=== PATIENT | female | born 1950 | race Caucasian/White ===

== ENCOUNTER 2017-07-22 05:28 | Day surgery (SDC) | payer OTHER ==
[~2017-07-22] VITALS: Ht 175.3 cm; Wt 86.6 kg
[~2017-07-22 05:28] MED LIST: ADVIL200 MG PO; FEMARA2.5 MG PO; MAGNESIUM OXID200 MG PO; POTASSIUM-9999 MG PO; TURMERIC500 M2 PO; VITAMIN D32000 UNI1 PO
[2017-07-22 06:40] VITALS: BP 112/68
[2017-07-22 09:15] VITALS: BP 125/67
[2017-07-22 09:58] VITALS: BP 115/67
[2017-07-25 13:29] LABS: CHOLINESTERASE 1516 IU/L (2673-6592)
== END 2017-07-22 10:13 | disposition home or self-care (01) ==
LOC: SDC 05:28
PROVIDERS: Obstetrics & Gynecology Gynecologic Oncology
DX: N95.0 Postmenopausal bleeding (principal); N84.0 Polyp of corpus uteri; N85.00 Endometrial hyperplasia, unspecified; Z85.3 Personal history of malignant neoplasm of breast; N88.2 Stricture and stenosis of cervix uteri; Z92.21 Personal history of antineoplastic chemotherapy; Z86.19 Personal history of other infectious and parasitic diseases; E55.9 Vitamin D deficiency, unspecified; Z87.440 Personal history of urinary (tract) infections; Z90.12 Acquired absence of left breast and nipple; Z87.891 Personal history of nicotine dependence
CPT/HCPCS: 82480 90; 88305; J0131; J0690; J1100; J1885; J2405; J3010